=== PATIENT | male | born 1980 | race Caucasian/White ===

== ENCOUNTER 2017-09-18 18:28 | Emergency (ER) | payer MEDICAID | END 2017-09-18 19:53 | disposition home or self-care (01) | LOC: E/R 18:28 | DX: J02.9 Acute pharyngitis, unspecified (principal); I10 Essential (primary) hypertension | CPT/HCPCS: 99283; Z7502 ==

== ENCOUNTER 2017-10-19 20:08 | Emergency (ER) | payer MEDICAID ==
[2017-10-19] MEDS: IBUPROFEN 800 MG TAB PO (20:32)
== END 2017-10-19 20:43 | disposition home or self-care (01) ==
LOC: E/R 20:43
DX: R07.9 Chest pain, unspecified (principal); I10 Essential (primary) hypertension
CPT/HCPCS: 71045; 93005; 99284-25

== ENCOUNTER 2018-05-25 11:13 | Emergency (ER) | payer MEDICAID ==
[2018-05-25] MEDS: IBUPROFEN 800 MG TAB PO (11:53)
== END 2018-05-25 12:24 | disposition home or self-care (01) ==
LOC: FTE 11:13
DX: J06.9 Acute upper respiratory infection, unspecified (principal); I10 Essential (primary) hypertension
CPT/HCPCS: 99283; Z7502

== ENCOUNTER 2018-05-28 16:47 | Emergency (ER) | payer MEDICAID ==
[2018-05-28 19:12] LABS: ADD MAN DIFF? NO
[2018-05-28 19:14] LABS: BASOPHILS % 0.5 % (0.0-2.0); EOSINOPHILS # 0.1 10^3/ul (0.0-0.5); EOSINOPHILS % 1.4 % (0.0-7.0); HEMOGLOBIN 15.2 g/dl (14.0-18.0); LYMPHOCYTES # 2.4 10^3/ul (0.8-2.9); MEAN CORPUSCULAR HGB CONC 33.8 g/dl (32.0-37.0); MEAN CORPUSCULAR VOLUME 85.9 fl (82.0-101.0); MEAN PLATELET VOLUME 9.8 fl (7.4-10.4); MONOCYTE # 0.6 10^3/ul (0.3-0.9); MONOCYTES % 9.7 % (0.0-11.0); NEUTROPHIL # 2.6 10^3/ul (1.6-7.5); NEUTROPHILS % 46.2 % (39.0-77.0); PLATELET COUNT 284 10^3/UL (140-415); RED BLOOD COUNT 5.24 10^6/ul (4.70-6.10); RED CELL DISTRIBUTION WIDTH 12.5 % (11.5-14.5)
[2018-05-28 19:14] LABS: WHITE BLOOD COUNT 5.7 10^3/ul (4.8-10.8)
[2018-05-28] MEDS: KETOROLAC 15 MG INJ IV (19:14)
[2018-05-28] MEDS: SOD CHLORIDE 0.9% 500 ML IV (19:15)
[2018-05-28 19:19] LABS: ANION GAP 11 (5-13); BLOOD UREA NITROGEN 9 mg/dl (7-20); CALCIUM 8.7 mg/dl (8.4-10.2); CARBON DIOXIDE 27 mmol/L (21-31); CHLORIDE 104 mmol/L (97-110); CREATININE 0.98 mg/dl (0.61-1.24); Estimated GFR > 60 mL/min (>60); GLUCOSE 133 mg/dl (70-220); POTASSIUM 3.9 mmol/L (3.5-5.1); SODIUM 142 mmol/L (135-144)
[2018-05-28] MEDS: ALBUTEROL 0.083% (NEB) 2.5 MG/3 ML AMP NEB (21:39)
== END 2018-05-28 22:20 | disposition home or self-care (01) ==
LOC: E/R 16:47
DX: B34.9 Viral infection, unspecified (principal); I10 Essential (primary) hypertension; J20.8 Acute bronchitis due to other specified organisms
CPT/HCPCS: 36415; 71045; 80048; 85025; 94664; 96374; 99284-25